=== PATIENT | male | born 1945 | race Caucasian/White ===

== ENCOUNTER 2021-03-18 11:48 | Inpatient (IN) | payer MEDICARE, OTHER ==
[~2021-03-18] VITALS: Ht 177.8 cm; Wt 118.4 kg
[~2021-03-18 11:48] MED LIST: AMOXICILLIN250 MG PO; BACTRIM DS TAB1 EACH PO; CELEBREX100 MG PO; FERROUS SULFAT325 MG PO; IMODIUM2 MG PO; LEXAPRO5 MG PO; LISINOPRIL-HCT1 EACH PO; METOPROLOL TART50 MG PO; MINOCYCLINE HCL50 MG PO; MUPIROCIN22 GM TOP; PREDNISONE20 MG PO; ZESTRIL10 MG PO
[2021-03-18] MEDS ORDERED: SODIUM CHLORIDE 0.9% 1000ML 1,000 ML IV STA (12:17)
[2021-03-18 12:55] LABS: BASOPHILS % 0.2 % (0.0-1.0); EOSINOPHILS # (AUTO) 0.4 (0.0-0.4); EOSINOPHILS % 4.6 % (0.0-6.0); HEMATOCRIT 28.9 % (38.2-49.6); LYMPHOCYTES % 10.3 % (18.0-39.1); MEAN CORPUSCULAR HEMOGLOBIN 29.1 pg (28-32); MEAN CORPUSCULAR HGB CONC 31.1 g/dL (31-35); MEAN CORPUSCULAR VOLUME 93.5 fL (81-99); MONOCYTES # (AUTO) 1.4 (0.2-0.8); NEUTROPHILS # (AUTO) 6.6 (2.1-6.9); NEUTROPHILS % 69.5 % (38.7-80.0); PLATELET COUNT 272 x10e3/uL (140-360); RED BLOOD COUNT 3.09 x10e6/uL (4.3-5.7); RED CELL DISTRIBUTION WIDTH 14.1 % (11.7-14.4)
[2021-03-18 13:10] LABS: INR 1.15; PROTHROMBIN TIME 15.2 seconds (11.9-14.5)
[2021-03-18 13:11] LABS: PARTIAL THROMBOPLASTIN TIME 39.6 seconds (23.8-35.5)
[2021-03-18 13:13] LABS: ALBUMIN 2.6 g/dL (3.5-5.0); ALBUMIN/GLOBULIN RATIO 0.7 (0.8-2.0); ANION GAP 15.2 mmol/L (8-16); CALCIUM 8.4 mg/dL (8.4-10.2); CREATININE, SERUM 2.78 mg/dL (0.72-1.25); MAGNESIUM 3.1 MG/DL (1.3-2.1); POTASSIUM 5.2 mmol/L (3.5-5.1)
[2021-03-18 13:19] LABS: CREATINE KINASE MB 0.8 ng/mL (0-5.0)
[2021-03-18 13:41] LABS: CLARITY,URINE CLEAR (CLEAR); COLOR,URINE YELLOW (YELLOW); KETONES,URINE TRACE (NEGATIVE); LEUKOCYTE ESTERASE ,URINE NEGATIVE (NEGATIVE); NITRITE,URINE NEGATIVE (NEGATIVE); PROTEIN,URINE DIPSTICK NEGATIVE (NEGATIVE); URINE UROBILINOGEN 0.2 mg/dL (0.2 - 1)
[2021-03-18 13:42] LABS: BACTERIA,URINE RARE /HPF; EPITHELIAL CELLS,URINE FEW /LPF; RBC,URINE 0-5 /HPF (0-5); WBC,URINE (MAN) 0-5 /HPF (0-5)
[2021-03-18] MEDS ORDERED: ONDANSETRON HCL INJ 2MG/ML 2ML 2 MG/ML VIAL IV PRN (16:30)
[2021-03-18] MEDS: CEFTRIAXONE 1 GM in SODIUM CHLORIDE 0.9% 50ML 50 ML IV SCH (16:44)
[2021-03-18] MEDS: FAMOTIDINE 20 MG/2 ML VIAL IV SCH (16:53)
[2021-03-18 18:05] VITALS: BP 103/73
[2021-03-18 18:31] VITALS: BP 118/74
[2021-03-18] MEDS ORDERED: DORZOLAMIDE-TIM10 ML OP (18:57)
[2021-03-18] MEDS ORDERED: LUMIGAN2.5 M1 OP (18:57)
[2021-03-18] MEDS ORDERED: ZOLPIDEM TARTRAT5 MG PO (18:57)
[2021-03-18 19:23] LABS: CREATINE KINASE 25 IU/L (30-200)
[2021-03-18 20:00] VITALS: BP 130/75
[2021-03-18 21:00] VITALS: BP 130/75
[2021-03-18] MEDS: ZOLPIDEM TARTRATE 5 MG TAB PO SCH (22:37)
[2021-03-19] VITALS (7 sets, daily range): BP systolic 108–139; BP diastolic 58–77
[2021-03-19] MEDS: FAMOTIDINE 20 MG/2 ML VIAL IV SCH ×2 (04:16→17:16)
[2021-03-19 05:35] LABS: BASOPHILS % 0.1 % (0.0-1.0); EOSINOPHILS # (AUTO) 0.2 (0.0-0.4); EOSINOPHILS % 2.5 % (0.0-6.0); HEMATOCRIT 25.9 % (38.2-49.6); HEMOGLOBIN 8.4 g/dL (14.0-18.0); LYMPHOCYTES % 14.7 % (18.0-39.1); MEAN CORPUSCULAR HEMOGLOBIN 29.5 pg (28-32); MEAN CORPUSCULAR HGB CONC 32.4 g/dL (31-35); MEAN CORPUSCULAR VOLUME 90.9 fL (81-99); MONOCYTES # (AUTO) 0.7 (0.2-0.8); MONOCYTES % 10.2 % (4.4-11.3); NEUTROPHILS # (AUTO) 5.1 (2.1-6.9); NEUTROPHILS % 72.1 % (38.7-80.0); PLATELET COUNT 270 x10e3/uL (140-360); RED BLOOD COUNT 2.85 x10e6/uL (4.3-5.7); RED CELL DISTRIBUTION WIDTH 14.2 % (11.7-14.4)
[2021-03-19 06:04] LABS: ALBUMIN 2.2 g/dL (3.5-5.0); ALBUMIN/GLOBULIN RATIO 0.7 (0.8-2.0); ANION GAP 15.3 mmol/L (8-16); CALCIUM 8.2 mg/dL (8.4-10.2); CHOL/HDL RATIO 2.9 (3.9-4.7); CREATININE, SERUM 1.78 mg/dL (0.72-1.25); POTASSIUM 5.3 mmol/L (3.5-5.1)
[2021-03-19 06:23] LABS: MAGNESIUM 2.6 MG/DL (1.3-2.1); PHOSPHORUS 3.3 MG/DL (2.3-4.7)
[2021-03-19 06:34] LABS: CREATINE KINASE 18 IU/L (30-200)
[2021-03-19 06:37] LABS: THYROID STIMULATING HORMONE 0.191 uIU/mL (0.350-4.940)
[2021-03-19] MEDS: CEFTRIAXONE 1 GM in SODIUM CHLORIDE 0.9% 50ML 50 ML IV SCH (08:34)
[2021-03-19] MEDS: DORZOLAMIDE/TIMOLOL (OPTH SOL) 10 ML DRPETTE OP SCH ×2 (08:45→17:17)
[2021-03-19] MEDS ORDERED: SOD POLYSTYRENE SULFONATE SUSP 15 GM/60 ML BTL PO ONE (12:30)
[2021-03-19] MEDS: SODIUM CHLORIDE 0.9% 1000ML 1,000 ML IV SCH ×2 (13:15→23:19)
[2021-03-19] MEDS: HYDROCODONE/APAP 5MG-325MG TAB PO PRN (16:11)
[2021-03-19] MEDS: ESCITALOPRAM OXALATE 10 MG TAB PO SCH (17:17)
[2021-03-19] MEDS: BIMATOPROST(OPTH) 2.5 ML BOTTLE OP SCH (20:11)
[2021-03-19] MEDS: ZOLPIDEM TARTRATE 5 MG TAB PO SCH (20:12)
[2021-03-20] VITALS (7 sets, daily range): BP systolic 100–143; BP diastolic 55–70
[2021-03-20] MEDS: FAMOTIDINE 20 MG/2 ML VIAL IV SCH ×2 (05:15→16:22)
[2021-03-20 05:47] LABS: BASOPHILS % 0.3 % (0.0-1.0); EOSINOPHILS # (AUTO) 0.3 (0.0-0.4); EOSINOPHILS % 4.2 % (0.0-6.0); HEMATOCRIT 25.4 % (38.2-49.6); LYMPHOCYTES # (AUTO) 1.8 (1.0-3.2); MEAN CORPUSCULAR HEMOGLOBIN 29.6 pg (28-32); MEAN CORPUSCULAR HGB CONC 31.5 g/dL (31-35); MEAN CORPUSCULAR VOLUME 94.1 fL (81-99); MONOCYTES # (AUTO) 0.8 (0.2-0.8); MONOCYTES % 11.2 % (4.4-11.3); NEUTROPHILS # (AUTO) 4.4 (2.1-6.9); NEUTROPHILS % 58.4 % (38.7-80.0); PLATELET COUNT 249 x10e3/uL (140-360); RED CELL DISTRIBUTION WIDTH 14.4 % (11.7-14.4)
[2021-03-20 06:34] LABS: ALBUMIN 2.2 g/dL (3.5-5.0); ALBUMIN/GLOBULIN RATIO 0.7 (0.8-2.0); ANION GAP 12.7 mmol/L (8-16); CALCIUM 8.2 mg/dL (8.4-10.2); CREATININE, SERUM 1.36 mg/dL (0.72-1.25); POTASSIUM 4.7 mmol/L (3.5-5.1)
[2021-03-20] MEDS: CEFTRIAXONE 1 GM in SODIUM CHLORIDE 0.9% 50ML 50 ML IV SCH (08:05)
[2021-03-20] MEDS: DORZOLAMIDE/TIMOLOL (OPTH SOL) 10 ML DRPETTE OP SCH ×2 (08:05→16:22)
[2021-03-20] MEDS: ESCITALOPRAM OXALATE 10 MG TAB PO SCH (08:05)
[2021-03-20] MEDS: HYDROCODONE/APAP 5MG-325MG TAB PO PRN ×2 (10:49→17:01)
[2021-03-20] MEDS ORDERED: SODIUM FERRIC GLUCONATE COMPLX 125 MG in SODIUM CHLORIDE 0.9% 100 ML 100 ML IV SCH (14:00)
[2021-03-20] MEDS: SODIUM CHLORIDE 0.9% 1000ML 1,000 ML IV SCH (14:28)
[2021-03-20] MEDS: ZOLPIDEM TARTRATE 5 MG TAB PO SCH (21:35)
[2021-03-20] MEDS: BIMATOPROST(OPTH) 2.5 ML BOTTLE OP SCH (21:35)
[2021-03-21] VITALS: BP 120/61
[2021-03-21 04:00] VITALS: BP 132/68
[2021-03-21] MEDS: SODIUM CHLORIDE 0.9% 1000ML 1,000 ML IV SCH (04:20)
[2021-03-21] MEDS: FAMOTIDINE 20 MG/2 ML VIAL IV SCH (05:16)
[2021-03-21 06:00] LABS: BASOPHILS # (AUTO) 0.1 (0.0-0.1); BASOPHILS % 0.5 % (0.0-1.0); EOSINOPHILS # (AUTO) 0.6 (0.0-0.4); EOSINOPHILS % 5.7 % (0.0-6.0); HEMATOCRIT 30.8 % (38.2-49.6); HEMOGLOBIN 9.7 g/dL (14.0-18.0); LYMPHOCYTES # (AUTO) 2.8 (1.0-3.2); LYMPHOCYTES % 28.2 % (18.0-39.1); MEAN CORPUSCULAR HEMOGLOBIN 29.4 pg (28-32); MEAN CORPUSCULAR HGB CONC 31.5 g/dL (31-35); MEAN CORPUSCULAR VOLUME 93.3 fL (81-99); MONOCYTES # (AUTO) 0.9 (0.2-0.8); MONOCYTES % 8.6 % (4.4-11.3); NEUTROPHILS % 50.5 % (38.7-80.0); PLATELET COUNT 338 x10e3/uL (140-360); RED CELL DISTRIBUTION WIDTH 14.1 % (11.7-14.4)
[2021-03-21 06:16] LABS: ALBUMIN 2.7 g/dL (3.5-5.0); ALBUMIN/GLOBULIN RATIO 0.7 (0.8-2.0); ANION GAP 13.4 mmol/L (8-16); CALCIUM 8.9 mg/dL (8.4-10.2); CREATININE, SERUM 1.13 mg/dL (0.72-1.25); POTASSIUM 4.4 mmol/L (3.5-5.1)
[2021-03-21 07:11] VITALS: BP 140/62
[2021-03-21] MEDS: ESCITALOPRAM OXALATE 10 MG TAB PO SCH (08:19)
[2021-03-21] MEDS: HYDROCODONE/APAP 5MG-325MG TAB PO PRN (08:19)
[2021-03-21] MEDS: DORZOLAMIDE/TIMOLOL (OPTH SOL) 10 ML DRPETTE OP SCH (08:19)
[2021-03-21] MEDS: CEFTRIAXONE 1 GM in SODIUM CHLORIDE 0.9% 50ML 50 ML IV SCH (08:20)
[2021-03-21] MEDS ORDERED: FAMOTIDINE 20 MG TAB PO SCH (09:00)
[2021-03-21 09:36] VITALS: BP 140/62
[2021-03-21] MEDS ORDERED: CEFUROXIME250 MG PO (09:42)
[2021-03-21] MEDS ORDERED: ZITHROMAX500 MG PO (09:42)
[2021-03-21] MEDS ORDERED: FEOSOL325 MG PO (09:59)
[2021-03-21 11:00] VITALS: BP 141/53
[2021-03-21 11:17] LABS: EOSINOPHILS % (MANUAL) 2 % (0-7); LYMPHOCYTES % (MANUAL) 26 % (19-48); MONOCYTES % (MANUAL) 11 % (3.4-9.0); MYELOCYTES % (MANUAL) 1 % (0-0); NEUTROPHILS % (MANUAL) 60 % (40-74)
[2021-03-21 11:18] LABS: PLATELET ESTIMATE ADEQUATE; PLATELET MORPHOLOGY COMMENT NORMAL; RBC MORPHOLOGY COMMENT NORMAL
== END 2021-03-21 13:25 | disposition home or self-care (01) | DRG 70 ==
LOC: ER 12:00 → ERHOLD 16:35 → MED/SURG 17:45
PROVIDERS: ADMIT Internal Medicine; ATTEND Internal Medicine
DX: G93.41 Metabolic encephalopathy (principal); J18.9 Pneumonia, unspecified organism; N39.0 Urinary tract infection, site not specified; N17.9 Acute kidney failure, unspecified; E86.0 Dehydration; I10 Essential (primary) hypertension; E11.9 Type 2 diabetes mellitus without complications; F41.9 Anxiety disorder, unspecified; F43.10 Post-traumatic stress disorder, unspecified; D64.9 Anemia, unspecified; W01.0XXA Fall on same level from slipping, tripping and stumbling without subsequent striking against object, initial encounter; E87.5 Hyperkalemia; D50.9 Iron deficiency anemia, unspecified; E66.9 Obesity, unspecified; M19.042 Primary osteoarthritis, left hand; M19.041 Primary osteoarthritis, right hand; Z98.84 Bariatric surgery status; Z68.37 Body mass index [BMI] 37.0-37.9, adult; Z20.822 Contact with and (suspected) exposure to COVID-19
CPT/HCPCS: 36415; 51700; 70450; 71045; 72125; 72131; 72170; 80053; 80061; 81001; 82140; 82550; 82553; 83036; 83605; 83735; 83880; 84100; 84443; 84484; 85025; 85610; 85730; 87040; 87086; 93005; 93306; 96361; 97139; 99284; J0456; J0696; J2405; J2916; J7030; J7050; U0002

== ENCOUNTER 2021-04-18 11:06 | Observation (INO) | payer MEDICARE ==
[~2021-04-18] VITALS: Ht 177.8 cm; Wt 118.4 kg
[~2021-04-18 11:06] MED LIST changes: +CEFUROXIME250 MG PO; +DORZOLAMIDE-TIM10 ML OP; +FEOSOL325 MG PO; +LUMIGAN2.5 M1 OP; +ZITHROMAX500 MG PO; +ZOLPIDEM TARTRAT5 MG PO
[2021-04-18 12:27] LABS: BASOPHILS % 0.3 % (0.0-1.0); EOSINOPHILS # (AUTO) 0.2 (0.0-0.4); EOSINOPHILS % 2.6 % (0.0-6.0); HEMATOCRIT 27.7 % (38.2-49.6); HEMOGLOBIN 8.9 g/dL (14.0-18.0); LYMPHOCYTES # (AUTO) 1.2 (1.0-3.2); LYMPHOCYTES % 15.9 % (18.0-39.1); MEAN CORPUSCULAR HEMOGLOBIN 30.2 pg (28-32); MEAN CORPUSCULAR HGB CONC 32.1 g/dL (31-35); MEAN CORPUSCULAR VOLUME 93.9 fL (81-99); MONOCYTES # (AUTO) 0.7 (0.2-0.8); MONOCYTES % 8.8 % (4.4-11.3); NEUTROPHILS # (AUTO) 5.5 (2.1-6.9); PLATELET COUNT 178 x10e3/uL (140-360); RED BLOOD COUNT 2.95 x10e6/uL (4.3-5.7); RED CELL DISTRIBUTION WIDTH 13.6 % (11.7-14.4)
[2021-04-18 12:50] LABS: ALBUMIN 3.2 g/dL (3.5-5.0); ANION GAP 15.5 mmol/L (8-16); CALCIUM 9.1 mg/dL (8.4-10.2); CREATININE, SERUM 2.05 mg/dL (0.72-1.25); MAGNESIUM 1.6 MG/DL (1.3-2.1); POTASSIUM 4.5 mmol/L (3.5-5.1)
[2021-04-18 12:59] LABS: CREATINE KINASE MB 0.7 ng/mL (0-5.0)
[2021-04-18 13:27] LABS: CLARITY,URINE CLEAR (CLEAR); COLOR,URINE YELLOW (YELLOW)
[2021-04-18 13:28] LABS: KETONES,URINE TRACE (NEGATIVE); LEUKOCYTE ESTERASE ,URINE NEGATIVE (NEGATIVE); NITRITE,URINE NEGATIVE (NEGATIVE); PROTEIN,URINE DIPSTICK NEGATIVE (NEGATIVE); URINE UROBILINOGEN 1 mg/dL (0.2 - 1)
[2021-04-18 13:37] LABS: ERYTHROCYTE SEDIMENTATION RATE 67 mm/hr (0-13)
[2021-04-18 13:46] LABS: MUCUS,URINE FEW (RARE); WBC,URINE (MAN) 0-5 /HPF (0-5)
[2021-04-18] MEDS ORDERED: SODIUM CHLORIDE 0.9% 500ML 500 ML IV ONE (14:30)
[2021-04-18] MEDS ORDERED: ONDANSETRON HCL INJ 2MG/ML 2ML 2 MG/ML VIAL IV PRN (15:30)
[2021-04-18] MEDS ORDERED: DEXTROSE 50% SYRINGE 50 ML IV PRN (15:30)
[2021-04-18] MEDS: INSULIN LISPRO 100 UNIT/1 ML 3ML VIAL SQ SCH ×2 (16:30→21:00)
[2021-04-18 18:15] VITALS: BP 150/84
[2021-04-18] MEDS: FAMOTIDINE 20 MG TAB PO SCH (18:31)
[2021-04-18] MEDS: SODIUM CHLORIDE 0.9% 1000ML 1,000 ML IV SCH (18:31)
[2021-04-18 19:30] VITALS: BP 150/84
[2021-04-18 20:32] LABS: INR 1.06; PROTHROMBIN TIME 14.7 seconds (11.9-14.5)
[2021-04-18 20:33] LABS: PARTIAL THROMBOPLASTIN TIME 29.7 seconds (23.8-35.5)
[2021-04-18 20:42] LABS: CREATINE KINASE MB 0.7 ng/mL (0-5.0)
[2021-04-19] VITALS: BP 135/65
[2021-04-19] MEDS ORDERED: ACETAMINOPHEN 325 MG TAB PO PRN
[2021-04-19] MEDS ORDERED: TEMAZEPAM 15 MG CAP PO PRN
[2021-04-19 04:00] VITALS: BP 127/70
[2021-04-19] MEDS: SODIUM CHLORIDE 0.9% 1000ML 1,000 ML IV SCH (04:08)
[2021-04-19 04:55] LABS: BASOPHILS % 0.3 % (0.0-1.0); EOSINOPHILS # (AUTO) 0.3 (0.0-0.4); EOSINOPHILS % 3.6 % (0.0-6.0); HEMATOCRIT 25.6 % (38.2-49.6); HEMOGLOBIN 8.2 g/dL (14.0-18.0); LYMPHOCYTES # (AUTO) 1.7 (1.0-3.2); LYMPHOCYTES % 22.4 % (18.0-39.1); MEAN CORPUSCULAR HEMOGLOBIN 30.1 pg (28-32); MEAN CORPUSCULAR VOLUME 94.1 fL (81-99); MONOCYTES # (AUTO) 0.8 (0.2-0.8); MONOCYTES % 10.7 % (4.4-11.3); NEUTROPHILS # (AUTO) 4.6 (2.1-6.9); NEUTROPHILS % 62.6 % (38.7-80.0); PLATELET COUNT 150 x10e3/uL (140-360); RED BLOOD COUNT 2.72 x10e6/uL (4.3-5.7); RED CELL DISTRIBUTION WIDTH 13.6 % (11.7-14.4)
[2021-04-19 05:38] LABS: ALBUMIN 2.8 g/dL (3.5-5.0); ALKALINE PHOSPHATASE 44 IU/L (40-150); ANION GAP 13.5 mmol/L (8-16); BLOOD UREA NITROGEN 28 mg/dL (7-26); BUN/CREATININE RATIO 18 (6-25); CALCIUM 8.3 mg/dL (8.4-10.2); CARBON DIOXIDE 22 mmol/L (22-29); CHLORIDE 104 mmol/L (98-107); CREATININE, SERUM 1.58 mg/dL (0.72-1.25); EST GLOMERULAR FILTRATION RATE 43 ML/MIN (60-); GLUCOSE 80 mg/dL (74-118); POTASSIUM 4.5 mmol/L (3.5-5.1); SODIUM 135 mmol/L (136-145)
[2021-04-19 05:45] LABS: ALANINE AMINOTRANSFERASE < 6 IU/L (0-55)
[2021-04-19 05:49] LABS: % IRON SATURATION 26 % (15-50); IRON 60 ug/dL (65-175); TOTAL IRON BINDING CAPACITY 228 ug/dL (261-478); TRANSFERRIN 163 mg/dL (174-364)
[2021-04-19 06:18] LABS: CREATINE KINASE MB 0.5 ng/mL (0-5.0)
[2021-04-19 06:36] LABS: THYROID STIMULATING HORMONE 0.568 uIU/mL (0.350-4.940)
[2021-04-19] MEDS: INSULIN LISPRO 100 UNIT/1 ML 3ML VIAL SQ SCH ×2 (07:30→11:30)
[2021-04-19 07:39] VITALS: BP 118/56
[2021-04-19] MEDS ORDERED: FEOSOL325 MG PO (08:38)
[2021-04-19] MEDS ORDERED: DOCUSATE SODIU100 MG PO (08:38)
[2021-04-19] MEDS ORDERED: ASCORBIC ACID500 M2 PO (08:38)
[2021-04-19] MEDS: FAMOTIDINE 20 MG TAB PO SCH (08:57)
[2021-04-19] MEDS ORDERED: HYDROCHLOROTHIAZIDE 25 MG TAB PO SCH (09:00)
[2021-04-19] MEDS ORDERED: LISINOPRIL 20 MG TAB PO SCH (09:00)
[2021-04-19] MEDS ORDERED: SODIUM FERRIC GLUCONATE COMPLX 125 MG in SODIUM CHLORIDE 0.9% 100 ML 100 ML IV SCH (10:00)
[2021-04-19] MEDS ORDERED: ONDANSETRON HCL 4 MG ORAL DISINTEGRATING TAB PO PRN (11:30)
[2021-04-19 12:03] LABS: CREATINE KINASE 67 IU/L (30-200)
== END 2021-04-19 13:22 | disposition home or self-care (01) ==
LOC: ER 11:27 → ERHOLD 15:28 → MED/SURG2 18:21
PROVIDERS: ADMIT Internal Medicine; ATTEND Internal Medicine
DX: R53.1 Weakness (principal); Z74.09 Other reduced mobility; I10 Essential (primary) hypertension; M19.90 Unspecified osteoarthritis, unspecified site; Z98.84 Bariatric surgery status; Z20.822 Contact with and (suspected) exposure to COVID-19; Z91.81 History of falling; F32.A Depression, unspecified
CPT/HCPCS: 36415 ×2; 71045; 80053 ×2; 81001; 82550 ×2; 82553 ×2; 82607; 82948 ×2; 83036; 83540; 83735; 83880; 84436; 84443; 84466; 84479; 84484 ×2; 85025 ×2; 85610; 85651; 85730; 87040; 87071; 87086; 87205; 93005; 97116; 97161; 99284; G0378 ×2; J2916; J7030 ×2; J7040; U0002; J2405

== ENCOUNTER 2021-04-24 16:58 | Emergency (ER) | payer MEDICARE ==
[~2021-04-24] VITALS: Ht 177.8 cm; Wt 118.4 kg
[~2021-04-24 16:58] MED LIST changes: +ASCORBIC ACID500 M2 PO; +DOCUSATE SODIU100 MG PO
== END 2021-04-24 19:22 | disposition home or self-care (01) ==
LOC: ER 17:31
DX: M79.661 Pain in right lower leg (principal); I10 Essential (primary) hypertension; E11.9 Type 2 diabetes mellitus without complications; F41.9 Anxiety disorder, unspecified; F43.10 Post-traumatic stress disorder, unspecified; Z98.84 Bariatric surgery status
CPT/HCPCS: 93971; 99284

== ENCOUNTER 2021-06-14 17:47 | Emergency (ER) | payer MEDICARE, OTHER ==
[~2021-06-14] VITALS: Ht 177.8 cm; Wt 118.4 kg
[2021-06-14 18:36] LABS: BASOPHILS % 0.4 % (0.0-1.0); EOSINOPHILS % 0.4 % (0.0-6.0); HEMATOCRIT 30.6 % (38.2-49.6); HEMOGLOBIN 10.2 g/dL (14.0-18.0); LYMPHOCYTES % 25.8 % (18.0-39.1); MEAN CORPUSCULAR HEMOGLOBIN 30.6 pg (28-32); MEAN CORPUSCULAR HGB CONC 33.3 g/dL (31-35); MEAN CORPUSCULAR VOLUME 91.9 fL (81-99); MONOCYTES # (AUTO) 0.8 (0.2-0.8); MONOCYTES % 10.1 % (4.4-11.3); NEUTROPHILS # (AUTO) 4.8 (2.1-6.9); NEUTROPHILS % 62.8 % (38.7-80.0); PLATELET COUNT 209 x10e3/uL (140-360); RED BLOOD COUNT 3.33 x10e6/uL (4.3-5.7); RED CELL DISTRIBUTION WIDTH 13.7 % (11.7-14.4)
[2021-06-14 18:50] LABS: ALBUMIN 3.8 g/dL (3.5-5.0); ALBUMIN/GLOBULIN RATIO 1.1 (0.8-2.0); ANION GAP 15.5 mmol/L (8-16); CALCIUM 9.9 mg/dL (8.4-10.2); CREATININE, SERUM 1.38 mg/dL (0.72-1.25); POTASSIUM 4.5 mmol/L (3.5-5.1)
[2021-06-14] MEDS ORDERED: SODIUM CHLORIDE 0.9% 1000ML 1,000 ML IV SCH (19:15)
[2021-06-14] MEDS ORDERED: SODIUM CHLORIDE 0.9% 50ML 50 ML ONE (19:30)
[2021-06-14] MEDS ORDERED: IOPAMIDOL 370 MG/ML 200 ML INFUS..BTL INJ ONE (19:30)
[2021-06-14] MEDS ORDERED: SODIUM CHLORIDE 0.9% 1000ML 1,000 ML IV ONE (20:15)
[2021-06-14] MEDS ORDERED: AMOXICILLIN/CLAVULANATE K 875 MG TAB PO STA (20:17)
[2021-06-14] MEDS ORDERED: AUGMENTIN 875-1 EACH PO (20:20)
[2021-06-14] MEDS ORDERED: IBUPROFEN600 MG PO (20:20)
[2021-06-14] MEDS ORDERED: COLACE100 MG PO (20:20)
[2021-06-14 21:05] LABS: CLARITY,URINE CLEAR (CLEAR); COLOR,URINE YELLOW (YELLOW); KETONES,URINE TRACE (NEGATIVE); LEUKOCYTE ESTERASE ,URINE NEGATIVE (NEGATIVE); NITRITE,URINE NEGATIVE (NEGATIVE); PROTEIN,URINE DIPSTICK NEGATIVE (NEGATIVE); URINE UROBILINOGEN 0.2 mg/dL (0.2 - 1)
[2021-06-14 21:15] VITALS: BP 117/66
== END 2021-06-14 21:50 | disposition home or self-care (01) ==
LOC: ER 17:51
DX: R10.30 Lower abdominal pain, unspecified (principal); K57.32 Diverticulitis of large intestine without perforation or abscess without bleeding; K59.00 Constipation, unspecified; R51.9 Headache, unspecified; E66.9 Obesity, unspecified; Z20.822 Contact with and (suspected) exposure to COVID-19
CPT/HCPCS: 36415; 71045; 74177; 80053; 81001; 84484; 85025; 93005; 99284; J7030; Q9967; U0002

== ENCOUNTER 2023-04-03 07:18 | Observation (INO) | payer MEDICARE, OTHER ==
[2023-04-02 13:47] LABS: INR 1.03; PROTHROMBIN TIME 13.7 seconds (11.9-14.5)
[2023-04-02 13:48] LABS: PARTIAL THROMBOPLASTIN TIME 29.8 seconds (23.8-35.5)
[2023-04-02 13:59] LABS: ANION GAP 11.7 mmol/L (8-16); CALCIUM 9.2 mg/dL (8.4-10.2); CREATININE, SERUM 1.44 mg/dL (0.72-1.25); POTASSIUM 4.7 mmol/L (3.5-5.1)
[2023-04-02 14:25] LABS: BASOPHILS % 0.4 % (0.0-1.0); EOSINOPHILS # (AUTO) 0.1 (0.0-0.4); EOSINOPHILS % 1.8 % (0.0-6.0); HEMATOCRIT 27.7 % (38.2-49.6); HEMOGLOBIN 9.5 g/dL (14.0-18.0); LYMPHOCYTES # (AUTO) 1.4 (1.0-3.2); LYMPHOCYTES % 19.9 % (18.0-39.1); MEAN CORPUSCULAR HEMOGLOBIN 33.2 pg (28-32); MEAN CORPUSCULAR HGB CONC 34.3 g/dL (31-35); MEAN CORPUSCULAR VOLUME 96.9 fL (81-99); MONOCYTES # (AUTO) 0.8 (0.2-0.8); MONOCYTES % 11.3 % (4.4-11.3); NEUTROPHILS # (AUTO) 4.8 (2.1-6.9); NEUTROPHILS % 66.3 % (38.7-80.0); PLATELET COUNT 193 x10e3/uL (140-360); RED BLOOD COUNT 2.86 x10e6/uL (4.3-5.7); RED CELL DISTRIBUTION WIDTH 16.1 % (11.7-14.4); WHITE BLOOD COUNT 7.25 x10e3/uL (4.8-10.8)
[~2023-04-03] VITALS: Ht 177.8 cm; Wt 118.4 kg
[~2023-04-03 07:18] MED LIST changes: +AUGMENTIN 875-1 EACH PO; +COLACE100 MG PO; +IBUPROFEN600 MG PO; +LIDOCAINE 1% W/EPINEPHRINE 20 ML VIAL ONE; +MULTI-VITAMIN1 EACH PO; +THROMBIN FOR SOLN 5,000 UNIT VIAL ONE; +Vancomycin IV 1 GM VIAL ONE
[2023-04-03] MEDS ORDERED: CEFAZOLIN SODIUM 2 GM ONE (08:20)
[2023-04-03] MEDS ORDERED: LACTATED RINGER'S 1,000 ML ONE (08:20)
[2023-04-03] MEDS ORDERED: FLOMAX0.4 MG PO (08:30)
[2023-04-03] MEDS ORDERED: KETAMINE 50MG/5ML SYR ONE (11:57)
[2023-04-03] MEDS ORDERED: SEVOFLURANE INHAL SOLN 250 ML PEN BTL ONE (11:57)
[2023-04-03] MEDS ORDERED: DEXMEDETOMIDINE HCL 200 MCG/2 ML VIAL ONE (11:57)
[2023-04-03] MEDS ORDERED: SUGAMMADEX SODIUM 200 MG/2 ML VIAL IV ONE (11:57)
[2023-04-03] MEDS ORDERED: PROPOFOL IV EMULSION 10 MG/ML 20 ML VIAL ONE (11:57)
[2023-04-03] MEDS ORDERED: DEXAMETHASONE SOD PHOS INJ 4 MG/ML SDV ONE (11:57)
[2023-04-03] MEDS ORDERED: ONDANSETRON HCL INJ 2MG/ML 2ML 2 MG/ML VIAL ONE (11:57)
[2023-04-03] MEDS ORDERED: ACETAMINOPHEN 1000 MG/100 ML IV ONE (11:57)
[2023-04-03] MEDS ORDERED: LIDOCAINE HCL 2% LOCAL INJ 5 ML SDV VIAL INJ ONE (11:57)
[2023-04-03] MEDS ORDERED: ROCURONIUM BROMIDE 10 MG/ML 5ML VIAL IV ONE (11:57)
[2023-04-03] MEDS ORDERED: ZOLPIDEM TARTRATE 5 MG TAB PO PRN (12:15)
[2023-04-03] MEDS ORDERED: ACETAMINOPHEN 325 MG TAB PO PRN (12:15)
[2023-04-03] MEDS ORDERED: OXYCODONE/ACETAMINOPHEN 5-325 1 EACH TABLET PO PRN (12:15)
[2023-04-03] MEDS ORDERED: ONDANSETRON HCL INJ 2MG/ML 2ML 2 MG/ML VIAL IV PRN (12:15)
[2023-04-03] MEDS ORDERED: FENTANYL CITRATE/PF 100MCG/2 ML INJ ONE (12:15)
[2023-04-03] MEDS ORDERED: MORPHINE SULFATE 5 MG/ML VIAL IM PRN (12:15)
[2023-04-03] MEDS ORDERED: CARISOPRODOL 350 MG TAB PO PRN (12:15)
[2023-04-03] MEDS ORDERED: HYDROMORPHONE 2MG/ML IV PRN (12:15)
[2023-04-03] MEDS ORDERED: MAGNESIUM/ALUMINUM/SIMETHICONE 30 ML UDC PO PRN (12:15)
[2023-04-03] MEDS ORDERED: PROMETHAZINE HCL (IM) 25 MG/ML VIAL IM PRN (12:15)
[2023-04-03] MEDS ORDERED: HYDROCODON-ACE1 EA12 PO (12:18)
[2023-04-03] MEDS: FENTANYL CITRATE/PF 100MCG/2 ML INJ ONE ×2 (12:28→12:43)
[2023-04-03 13:50] VITALS: BP 130/70; PULSE 65; RESP 15; TEMP 98.5; O2SAT 100
[2023-04-03] MEDS: IBUPROFEN 600 MG TAB PO SCH ×2 (13:53→21:45)
[2023-04-03] MEDS: LACTATED RINGER'S 1,000 ML IV SCH ×2 (15:46→20:35)
[2023-04-03] MEDS ORDERED: DORZOLAMIDE/TIMOLOL (OPTH SOL) 10 ML DRPETTE OP SCH (17:00)
[2023-04-03 17:15] VITALS: BP 132/64; PULSE 68; RESP 19; TEMP 98.4; O2SAT 95
[2023-04-03] MEDS: DOCUSATE SODIUM 100 MG CAP PO SCH (18:16)
[2023-04-03] MEDS: FERROUS SULFATE 325 MG TAB PO SCH (18:16)
[2023-04-03] MEDS: TAMSULOSIN HCL 0.4 MG CAP PO SCH (18:16)
[2023-04-03 20:00] VITALS: BP 104/61; PULSE 76; RESP 20; TEMP 98.3; O2SAT 94
[2023-04-03] MEDS ORDERED: BIMATOPROST(OPTH) 2.5 ML BOTTLE OP SCH (21:00)
[2023-04-03] MEDS ORDERED: ZOLPIDEM TARTRATE 10 MG TAB PO SCH (21:00)
[2023-04-04] VITALS: BP 101/54; PULSE 68; RESP 18; TEMP 98.4; O2SAT 96
[2023-04-04] MEDS: LACTATED RINGER'S 1,000 ML IV SCH (02:17)
[2023-04-04 08:00] VITALS: BP 122/59; PULSE 72; RESP 18; TEMP 98.4; O2SAT 95
[2023-04-04] MEDS: TAMSULOSIN HCL 0.4 MG CAP PO SCH (08:38)
[2023-04-04] MEDS: IBUPROFEN 600 MG TAB PO SCH (08:39)
[2023-04-04] MEDS: FERROUS SULFATE 325 MG TAB PO SCH (08:40)
[2023-04-04] MEDS: DOCUSATE SODIUM 100 MG CAP PO SCH (08:40)
[2023-04-04 08:45] VITALS: BP 122/59; PULSE 72; RESP 18; TEMP 98.4; O2SAT 95
[2023-04-04] MEDS ORDERED: ESCITALOPRAM OXALATE 10 MG TAB PO SCH (09:00)
[2023-04-04] MEDS ORDERED: MULTIVITAMINS/MINERALS TAB PO SCH (09:00)
[2023-04-04] MEDS ORDERED: LISINOPRIL 20 MG TAB PO SCH (09:00)
[2023-04-04] MEDS ORDERED: HYDROCHLOROTHIAZIDE 25 MG TAB PO SCH (09:00)
[2023-04-04] MEDS ORDERED: ONDANSETRON HCL 4 MG ORAL DISINTEGRATING TAB PO PRN (11:00)
== END 2023-04-04 11:08 | disposition home or self-care (01) ==
LOC: OR 07:18 → PACU V 12:15 → MED/SURG2 13:26
PROVIDERS: ADMIT Neurological Surgery; ATTEND Neurological Surgery
DX: M48.062 Spinal stenosis, lumbar region with neurogenic claudication (principal); D64.9 Anemia, unspecified; I10 Essential (primary) hypertension; Z71.3 Dietary counseling and surveillance; Z71.82 Exercise counseling; Z01.810 Encounter for preprocedural cardiovascular examination; Z01.812 Encounter for preprocedural laboratory examination; Z01.818 Encounter for other preprocedural examination; Z79.1 Long term (current) use of non-steroidal anti-inflammatories (NSAID); Z79.899 Other long term (current) drug therapy
CPT/HCPCS: 36415 ×2; 63047; 63048; 71046; 72020; 80048; 82948; 85025; 85610; 85730; 86850; 86900; 88304; 88311; 93005; G0378 ×2; J0131; J0690 ×2; J1100; J1170; J2001; J2270; J2405; J2704; J3010; J3370; J7121 ×2